=== PATIENT | female | born 1995 | race Caucasian/White ===

== ENCOUNTER 2019-12-19 17:47 | Emergency (ER) | payer OTHER ==
[~2019-12-19] VITALS: Ht 152.4 cm; Wt 55.8 kg
[2019-12-19] MEDS ORDERED: [UNRECOGNIZED DRUG - OTHER] (18:02)
[2019-12-19] MEDS ORDERED: SINGULEAR (18:02)
[2019-12-19] MEDS ORDERED: [UNRECOGNIZED DRUG - OTHER] (18:03)
[2019-12-19] MEDS ORDERED: ALBUTEROL (18:04)
== END 2019-12-19 20:22 | disposition home or self-care (01) ==
LOC: ER 17:47
DX: J45.998 Other asthma (principal)

== ENCOUNTER 2020-04-03 09:41 | Outpatient (CLI) | payer OTHER ==
[~2020-04-03 09:41] MED LIST: ALBUTEROL; SINGULEAR; [UNRECOGNIZED DRUG - OTHER]; [UNRECOGNIZED DRUG - OTHER]
== END 2020-04-03 09:56 | disposition home or self-care (01) ==
LOC: SONOGRAMA 09:41
PROVIDERS: ATTEND Pathology Anatomic Pathology & Clinical Pathology
DX: E04.1 Nontoxic single thyroid nodule (principal)